=== PATIENT | female | born 1945 | race Caucasian/White ===

== ENCOUNTER 2024-12-18 20:54 | Inpatient (IN) | payer OTHER, SELFPAY ==
[2024-12-18] VITALS (7 sets, daily range): BP systolic 137–167; BP diastolic 66–90; BMI 26.4; BMI 26.2
[2024-12-18 14:56] LABS: % Basophils 0.4 % (0-2); % Immature Granulocytes 0.5 % (0-0.5); % Lymphocytes 23.7 % (20.5-51.1); % Monocytes 11.2 % (1.7-9.3); % Neutrophils 62.2 % (42.2-75.2); Absolute Eosinophils 0.2 10^3/uL (0-0.7); Absolute Lymphocytes 1.9 10^3/uL (1.2-3.4); Absolute Monocytes 0.9 10^3/uL (0.1-0.6); Absolute Neutrophils 4.9 10^3/uL (1.4-6.5); Hematocrit 28.5 % (37.0-47.0); Hemoglobin 8.4 g/dL (12.0-16.0); Mean Corp Hgb Conc. 29.5 g/dL (33.0-37.0); Mean Corpuscular Hgb 23.1 pg (27.0-31.0); Mean Corpuscular Volume 78.5 fL (81.0-99.0); Mean Platelet Volume 9.1 fL (7.4-10.4); Nucleated Red Blood Cells % 0 %; Platelet Count 522 10^3/uL (130-400); Red Blood Cell Count 3.63 10^6/uL (4.20-5.40); Red Cell Dist. Width 18.6 % (11.5-14.5); White Blood Cell Count 7.9 10^3/uL (4.8-10.8)
[2024-12-18 15:10] LABS: ALT (SGPT) 20 U/L (0-35); AST (SGOT) 28 U/L (14-36); Albumin 4.5 g/dl (3.5-5.0); Alkaline Phosphatase 64 U/L (38-126); Blood Urea Nitrogen 19 mg/dl (7-17); Calcium 12.9 mg/dl (8.4-10.2); Carbon Dioxide 25 mmol/L (22-30); Chloride 102 mmol/L (98-107); Glucose 123 mg/dl (70-99); Potassium 4.4 mmol/L (3.5-5.1); Sodium 140 mmol/L (135-145); Total Bilirubin 0.5 mg/dl (0.2-1.3); Total Protein 7.7 g/dl (6.3-8.2)
--- NOTE | 2024-12-18 16:41 | ED.GENMED ---
History of Present Illness
<NADIA Paul - Last Filed: 12/18/24 20:09>
General
Chief Complaint: Abnormal Lab Value
Source: patient
Exam Limitations: none
Time Seen by Provider: 12/18/24 16:24
Nursing documentation reviewed up to this point in time: agreed with
History of Present Illness
History of Present Illness:
79 yr. old female presents to the ER for evaluation. Patient reports she was scheduled to see her corporate travel counselor tomorrow and had labs done prior to her appointment and was called stating that they were abnormal and to go to the emergency department.
She is unsure of which lab was abnormal. She does report over the past several months however she has felt very fatigued and short of breath worse with any exertion. She reports prior to several months ago she was able to even mop her floors and
was very active without feeling shortness of breath or fatigue. She denies any associated shortness of breath with her symptoms. She is on Eliquis for history of A-fib she denies any dark or black stools.
She reports she is very thirsty and has had a decreased appetite. Denies weight loss.
Review of Systems
<NADIA Paul - Last Filed: 12/18/24 20:09>
Review of Systems
Allergies reviewed?: Yes
Other source history: family
All Other Systems: ROS reviewed and negative except as documented in HPI and ROS
Constitutional: Reports fatigue
EENT: Reports no symptoms
Respiratory: Reports trouble breathing
Cardiac: Reports no symptoms
ABD/GI: Reports no symptoms
: Reports no symptoms
Musculoskeletal: Reports no symptoms
Skin: Reports no symptoms
Neurological: Reports no symptoms
Psychiatric: Reports no symptoms
Phy Exam
<NADIA Paul - Last Filed: 12/18/24 20:09>
General Physical Exam
General Presentation: no apparent distress
General age: appears stated age
General Skin: warm and dry
General Habitus: normal
General Mental: alert
General Hydration: appears well hydrated
Cardiovascular Exam
Cardiovascular Exam: regular rate/rhythm, no murmur and normal peripheral pulses
Pulmonary Exam
Pulmonary Exam: lungs clear
Gastrointestinal Exam
Gastrointestinal Exam: normal bowel sounds, non tender, soft and other (no stool in rectum during heme test )
Neurological Exam
Neurological Exam: alert and oriented x3
Course
<NADIA Paul - Last Filed: 12/18/24 20:09>
Orders/Labs/Results
Orders:
Orders
12/18/24 14:47
Complete Blood Count/With Diff Urgent
Comprehensive Metabolic Panel Urgent
Ferritin Urgent
Comment: ADD ON
Folate Urgent
Comment: ADD ON
Iron Urgent
Comment: ADD ON
NT-proBNP Urgent
Comment: ADD ON
TSH Reflex To Free T4 Urgent
Comment: ADD ON
Total Iron Binding Urgent
Comment: ADD ON
Vitamin B12 Urgent
Comment: ADD ON
12/18/24 16:40
Add On- LAB Urgent
Tests Added?: cardiac BNP
12/18/24 16:44
Add On- LAB Urgent
Tests Added?: tsh w/ reflexive T4
12/18/24 16:46
CT Chest PE Study Urgent
Comment:
Reason For Exam: SOB
12/18/24 18:41
0.9% Sodium Chloride 500 ml [Nss] 500 ml IV BOLUS
12/18/24 18:42
Electrocardiogram (*1) Stat
Reason for Study: Other
Other Reason for Exam: chest pain
EKG- Treatment ONCE
12/18/24 18:45
Add On- LAB Urgent
Tests Added?: Parathyroid hormone (PTH)
12/18/24 20:07
Add On- LAB Stat
Tests Added?: iron, b12, ferritin, foalte, TIBC
12/18/24 20:35
Admit/Transfer Patient As Directed
Co-Sign Provider:
Level of Care: Inpatient admission
Assign to:: Telemetry
Physician / Group: benito zimmer
Diagnosis: dehdyration
Reason for Telemetry: Arrhythmia
Date to Stop Telemetry: 12/21/24
Time to Stop Telemetry: 11:00
Reason for Hospitalization: dehdyration
Expected length of stay greater than two midnights?: Yes
ELOS- Estimated Length of Stay in days: 3
I certify the patient meets the requirements for IP care: Yes
PRN Pain Medication Management As Directed
May give lesser potent ordered pain med per pt: Yes
preference::
Protocol:: Medication orders for pain may be administered in a
manner that supports deferring to patient preference
when the pt is:
- Requesting an ordered lesser potent pain medication.
Least to most potent pain medications are defined
as: acetaminophen < NSAID < tramadol < opioids
(morphine, oxycodone, hydromorphone).
- Requesting a lesser dose of the same medication IF
ORDERED.
- Requesting a less intrusive route of administration
if both routes are prescribed by the provider (PO <
IV).
12/18/24 20:38
Code Status As Directed
Resuscitation Status: Full Code
12/18/24 20:48
CR Lumbar Spine 2 Or 3 Views Routine
Comment: include sacrum
Reason For Exam: pain
CR Thoracic Spine 3 Views Routine
Reason For Exam: pain
12/18/24 21:03
Urinalysis Reflex To Culture Routine
Date Specimen was Collected: 12/18/24
Time Specimen was Collected: 20:52
Urine Microscopic Reflex Cult Routine
Urine Culture Routine
NOLBERTO Source: U
Specimen Description:
Date Specimen was Collected: 12/18/24
Time Specimen was Collected: 20:52
12/19/24 06:00
EVIN w/Free Light Chains, Urine [S] IN AM
EVIN/Immunoglobulins/FLC [Monoclonal Protein Qnt,IMM,FLC] [S] IN AM
Intact PTH Includes Calcium IN AM
Protein Electrophoresis Reflex [S] IN AM
12/21/24 11:00
DC Protocol for Telemetry ONCE
Abnormal Lab Results
12/18/24
14:47
RBC 3.63 L 10^6/uL
(4.20-5.40)
Hgb 8.4 L g/dL
(12.0-16.0)
Hct 28.5 L %
(37.0-47.0)
MCV 78.5 L fL
(81.0-99.0)
MCH 23.1 L pg
(27.0-31.0)
MCHC 29.5 L g/dL
(33.0-37.0)
RDW 18.6 H %
(11.5-14.5)
Plt Count 522 H 10^3/uL
(130-400)
Absolute Monos (auto) 0.9 H 10^3/uL
(0.1-0.6)
Monocytes % 11.2 H %
(1.7-9.3)
BUN 19 H mg/dl
(7-17)
Creatinine 1.1 H mg/dL
(0.6-1.0)
Glucose 123 H mg/dl
(70-99)
Calcium 12.9 H mg/dl
(8.4-10.2)
Iron 36 L ug/dl
(37-170)
TIBC 500 H ug/dl
(265-497)
% Saturation 7 L %
(20-50)
Ferritin 7.0 L ng/ml
(11.1-264.0)
Folate > 20.0 H ng/ml
(2.76-20)
12/18/24 14:47
12/18/24 14:47
Vital Signs
Initial and Last Documented VS:
Initial Vital Signs
Temp Pulse Resp BP Pulse Ox
97.9 F 93 18 153/84 98
12/18/24 14:40 12/18/24 14:40 12/18/24 14:40 12/18/24 14:40 12/18/24 14:40
Last Documented Vital Signs
Temp Pulse Resp BP Pulse Ox
97.9 F 79 16 137/80 94
12/18/24 14:40 12/18/24 21:32 12/18/24 21:32 12/18/24 20:00 12/18/24 21:32
Data Recovery Planner consulted with Physician
Data Recovery Planner consulted with physician?: Yes
Name of Physician Consulted: rené
<Scott Augustin MD - Last Filed: 12/18/24 21:56>
Orders/Labs/Results
Orders:
Orders
12/18/24 14:47
Complete Blood Count/With Diff Urgent
Comprehensive Metabolic Panel Urgent
Ferritin Urgent
Comment: ADD ON
Folate Urgent
Comment: ADD ON
Iron Urgent
Comment: ADD ON
NT-proBNP Urgent
Comment: ADD ON
TSH Reflex To Free T4 Urgent
Comment: ADD ON
Total Iron Binding Urgent
Comment: ADD ON
Vitamin B12 Urgent
Comment: ADD ON
12/18/24 16:40
Add On- LAB Urgent
Tests Added?: cardiac BNP
12/18/24 16:44
Add On- LAB Urgent
Tests Added?: tsh w/ reflexive T4
12/18/24 16:46
CT Chest PE Study Urgent
Comment:
Reason For Exam: SOB
12/18/24 18:41
0.9% Sodium Chloride 500 ml [Nss] 500 ml IV BOLUS
12/18/24 18:42
Electrocardiogram (*1) Stat
Reason for Study: Other
Other Reason for Exam: chest pain
EKG- Treatment ONCE
12/18/24 18:45
Add On- LAB Urgent
Tests Added?: Parathyroid hormone (PTH)
12/18/24 20:07
Add On- LAB Stat
Tests Added?: iron, b12, ferritin, foalte, TIBC
12/18/24 20:35
Admit/Transfer Patient As Directed
Co-Sign Provider:
Level of Care: Inpatient admission
Assign to:: Telemetry
Physician / Group: benito zimmer
Diagnosis: dehdyration
Reason for Telemetry: Arrhythmia
Date to Stop Telemetry: 12/21/24
Time to Stop Telemetry: 11:00
Reason for Hospitalization: dehdyration
Expected length of stay greater than two midnights?: Yes
ELOS- Estimated Length of Stay in days: 3
I certify the patient meets the requirements for IP care: Yes
PRN Pain Medication Management As Directed
May give lesser potent ordered pain med per pt: Yes
preference::
Protocol:: Medication orders for pain may be administered in a
manner that supports deferring to patient preference
when the pt is:
- Requesting an ordered lesser potent pain medication.
Least to most potent pain medications are defined
as: acetaminophen < NSAID < tramadol < opioids
(morphine, oxycodone, hydromorphone).
- Requesting a lesser dose of the same medication IF
ORDERED.
- Requesting a less intrusive route of administration
if both routes are prescribed by the provider (PO <
IV).
12/18/24 20:38
Code Status As Directed
Resuscitation Status: Full Code
12/18/24 20:48
CR Lumbar Spine 2 Or 3 Views Routine
Comment: include sacrum
Reason For Exam: pain
CR Thoracic Spine 3 Views Routine
Reason For Exam: pain
12/18/24 21:03
Urinalysis Reflex To Culture Routine
Date Specimen was Collected: 12/18/24
Time Specimen was Collected: 20:52
Urine Microscopic Reflex Cult Routine
Urine Culture Routine
NOLBERTO Source: U
Specimen Description:
Date Specimen was Collected: 12/18/24
Time Specimen was Collected: 20:52
12/19/24 06:00
EVIN w/Free Light Chains, Urine [S] IN AM
EVIN/Immunoglobulins/FLC [Monoclonal Protein Qnt,IMM,FLC] [S] IN AM
Intact PTH Includes Calcium IN AM
Protein Electrophoresis Reflex [S] IN AM
12/21/24 11:00
DC Protocol for Telemetry ONCE
Abnormal Lab Results
12/18/24
14:47
RBC 3.63 L 10^6/uL
(4.20-5.40)
Hgb 8.4 L g/dL
(12.0-16.0)
Hct 28.5 L %
(37.0-47.0)
MCV 78.5 L fL
(81.0-99.0)
MCH 23.1 L pg
(27.0-31.0)
MCHC 29.5 L g/dL
(33.0-37.0)
RDW 18.6 H %
(11.5-14.5)
Plt Count 522 H 10^3/uL
(130-400)
Absolute Monos (auto) 0.9 H 10^3/uL
(0.1-0.6)
Monocytes % 11.2 H %
(1.7-9.3)
BUN 19 H mg/dl
(7-17)
Creatinine 1.1 H mg/dL
(0.6-1.0)
Glucose 123 H mg/dl
(70-99)
Calcium 12.9 H mg/dl
(8.4-10.2)
Iron 36 L ug/dl
(37-170)
TIBC 500 H ug/dl
(265-497)
% Saturation 7 L %
(20-50)
Ferritin 7.0 L ng/ml
(11.1-264.0)
Folate > 20.0 H ng/ml
(2.76-20)
12/18/24 14:47
12/18/24 14:47
Vital Signs
Initial and Last Documented VS:
Initial Vital Signs
Temp Pulse Resp BP Pulse Ox
97.9 F 93 18 153/84 98
12/18/24 14:40 12/18/24 14:40 12/18/24 14:40 12/18/24 14:40 12/18/24 14:40
Last Documented Vital Signs
Temp Pulse Resp BP Pulse Ox
97.9 F 79 16 137/80 94
12/18/24 14:40 12/18/24 21:32 12/18/24 21:32 12/18/24 20:00 12/18/24 21:32
<NADIA Paul - Last Filed: 12/18/24 20:09>
MDM/Problems Addressed
Differential Diagnosis Includes:
not limited to: anemia electrolyte abnormality, PE
MDM/Problems Addressed:
Patient is an 79-year-old female who was sent to the ER by her corporate travel counselor for abnormal lab results. Patient has had persistent fatigue and shortness of breath for the past several months. She was found to be anemic with a hemoglobin 8.4. She
denied any dark stools and on rectal exam there is no stool today test for Hemoccult. She was also found to have a high calcium of 12.9
CAT scan was done of the chest no PE.
Patient does have a history of A-fib she is anticoagulated however is in normal sinus rhythm here BNP is 465 no complaints of chest pain no other acute findings and EKG.
Pt was evaluated by ED physician and with worsening SOB/fatigue will recommend admission for symptomatic anemia; in addition will likely need workup for hypercalcemia
Chronic conditions affecting care:
A-fib on Eliquis
<NADIA Paul - Last Filed: 12/18/24 20:09>
*Radiology
Radiology exam reviewed: radiology read reviewed
*Pulse Oximetry
Patient hypoxic: no
*EKG
Interpreted by ED Provider?: Yes
Interpretation: abnormal
Heart Rate: 84
Rate: normal
Rhythm: sinus
Ischemia: non-specific ST changes
*Critical Care Note
Total Time (30-74mins, 75-104mins- exclusive of procedures): Not Applicable
ED Attending Note
<NADIA Paul - Last Filed: 12/18/24 20:09>
-
Portions of this chart may have been created with voice recognition software.� Occasional wrong word or��sound alike� substitutions may have occurred due to the inherent limitations of voice recognition software.
<Scott Augustin MD - Last Filed: 12/18/24 21:56>
ED Attending Note
Patient seen and examined by attending physician: Yes
I performed the substantive portion of visit, reviewed & personally made and approve the management plan that is documented in note by myself or SHIRLEY.: Yes
ED Attending Note:
I have seen and evaluated the patient with a [id number] encounter. I have spoken to the [FINANCE TEACHER] and involved in the medical history, the physical exam, medical decision making.
Evaluation and management service: agree unless noted differently below.
Results interpretation: agree unless noted differently below.
79-year-old female with history of iron deficiency anemia, A-fib, hypertension, hyperlipidemia presenting to the emergency department abnormal blood work. Patient states that she had routine blood work done for her corporate travel counselor and received a call
stating to come to the emergency department. Patient does state that she is extremely short of breath especially with any exertion. Also has been tired. Does have history of iron deficiency requiring iron transfusion in the past. No melena or
hematochezia. No chest pain. On arrival patient is resting comfortably. Her lungs are clear to auscultation. Her abdomen is soft nondistended nontender. Blood work obtained prior to my evaluation does show anemia, thrombocytosis, hypercalcemia
and slightly elevated creatinine. Patient is asymptomatic from her hypercalcemia. Could be multiple myeloma. After shared decision making patient would prefer to be admitted for serial hemoglobin and calcium monitoring which is appropriate.
Discharge Plan
Departure
Patient Disposition: Admit
Date of Disposition: 12/18/24
Time of Disposition: 20:07
Admit to: Telemetry
Admit to doctor: hospitalist
Presentation/result/management discussed w/ accepting MD/DO: Hospitalist
Patient with high blood pressure during this ER visit?: Yes
Condition: Fair
Covid-19: Not Applicable
Discharge Problem:
Anemia, PIÑA (dyspnea on exertion), Fatigue, Hypercalcemia
Interventions
Interventions:
*Risk Screen - Suicide Last Done: 12/18/24 14:40
*General Assessment Last Done: 12/18/24 14:40
*Neglect/Abuse Screening Last Done: 12/18/24 14:40
*ED- Fall Risk Assessment Last Done: 12/18/24 16:50
*ED COVID-19 Vaccine History Last Done: 12/18/24 14:40
[2024-12-18 17:36] LABS: NT-proBNP 465 pg/ml
[2024-12-18 17:58] LABS: TSH Reflex To Free T4 0.53 uIU/ml (0.47-4.68)
[2024-12-18] MEDS: NSS 500 IV (18:53)
--- NOTE | 2024-12-18 20:03 | HPS.HSE ---
Family Physician
-
Family Physician: * NONE
Chief Complaint
-
fatigue or sob
History of Present Illness
79 yr. old female with PMH for atrial fib, HTN, HLD, GERD,hiatal hernia, osteoarthritis, IBS presented with abnormal blood work as outpatient. patient stated fatigue and sob for few months now. sob progressively getting worse. sob worse with
exertion. patient was evaluated by cardiology and PCP with no acute intervention or findings. she had an routine blood work in preparation to see cardiology tomorrow and was noted to have abnormal blood work. patient stated she was just diagnosed
with UTI and she is on Bactrim. patient stated lower abdominal pain and urinary hesitancy.
upon arrival she was noted elevated calcium, annelise, low hgb. admitting for further management.
Medical History
Past Medical History
Past Medical History: Reports Other
Additional Past Medical History:
Hiatal hernia
atrial fib
HTN
HLD
GERD
IBS
Past Surgical History: Reports Other
Additional Past Surgical History:
endometrial ablation
appendectomy
tonsillectomy
cholecystectomy
Social History
Tobacco: Non-smoker
Alcohol: None
Drug: None
Personal: Single
Family History
Family History: Not pertinent
Allergies / Home Medications
Allergies reflects when Allergies were last updated in [facility].
Home Medications with original date entered in [facility]
Allergy/Medication List:
Allergies
Allergy/AdvReac Type Severity Reaction Status Date / Time
Cephalosporins Allergy Unverified 12/14/07 13:41
penicillin G Allergy Unverified 12/14/07 13:41
Penicillins Allergy Unverified 12/14/07 13:41
Home Medications
losartan 50 mg tablet 50 mg PO DAILY 12/18/24
Review of Systems
-
Constitutional: Reports No Symptoms
EENT: Reports No Symptoms
Respiratory: Reports Cough and Trouble Breathing
Cardiac: Reports No Symptoms
Abdomen/GI: Reports No Symptoms
: Reports No Symptoms
Musculoskeletal: Reports No Symptoms
Skin: Reports No Symptoms
Neurological: Reports No Symptoms
Endocrine: Reports No Symptoms
Hematologic/Lymphatic: Reports No Symptoms
Psych: Reports No Symptoms
Physical Exam
Vital Signs
Vital Signs
Temp Pulse Resp BP Pulse Ox
97.9 F 100 19 167/77 93
12/18/24 14:40 12/18/24 17:45 12/18/24 17:45 12/18/24 17:00 12/18/24 17:45
Physical Exam
General: Well Developed, Well Nourished and No Apparent Distress
HEENT: NormoCephalic, Moist mucous membranes and Atraumatic
Respiratory: Clear
Cardiac: S1/S2 and Regular Rhythm; No Murmur or Rub
GI: Soft, Non Tender, Non Distended and Normal Bowel Sounds; No Organomegaly
Rectal: Deferred by Provider
Musculoskeletal: No Clubbing, No Cyanosis and No Edema
Skin: No Rash
Neuro: AO x 3 and Nonfocal/grossly intact
Psych: Calm
Laboratory Results
-
12/18/24 14:47
12/18/24 14:47
Laboratory Results
Total Bilirubin 0.5 mg/dl (0.2-1.3) 12/18/24 14:47
AST 28 U/L (14-36) 12/18/24 14:47
ALT 20 U/L (0-35) 12/18/24 14:47
Alkaline Phosphatase 64 U/L (38-126) 12/18/24 14:47
Data Reviewed
-
CT Scan: Report Reviewed by me
Lab Data: Labs Reviewed by me
Impression/Plan
-
# Short of breath/fatigue likely secondary to anemia/thrombocytosis
- Hemoglobin 8.4, platelet 522
- Chest CT with no acute findings
-No stool on rectal exam
- Obtain iron panel
-obtain stool for occult blood
-obtain SPEP
# Hypercalcemia/acute kidney injury
- Creatinine 1.1, calcium 12.9
-obtain intact PTH, urine light chains
-EVIN
-fluids continued
#UTI
-obtain UA
-Bactrim held
#essential HTN
-hold hctz due to ANNELISE and hypercalcemia
-losartan continued
#GERD
-PPI
#osteoarthritis
-on tramadol as outpatient
#HLD
-statin, Repatha continued
#atrial fib
-EKG with NSR
-eliquis and metoprolol continued
#DVT prophylaxis
-eliquis
#CODE status
-full code
--- NOTE | 2024-12-18 20:39 | W.PN.UPDATE ---
Update Note
Progress Note Update
This note serves as an addendum to the H&P by college scouting coordinator SHIRLEY Iris LOPEZ
HPI
79F HX HTN, chr Eliquis , HX Prx AF on ARB seen at ER;
- she was scheduled to see her installation and repair technician tomorrow and had labs done prior to her appointment
- she was called stating that they were abnormal and to go to the emergency department.
- retrospectively , over the past several months felt very fatigued and short of breath worse with any exertion.
- Interval declined in effort tolerance over few months was very active without feeling shortness of breath or fatigue.
- Significant report loss appetite , polyuria and polydipsia
ROS
- denies any dark or black stools.
- Denies weight loss.
Reviewed VS: Afebrile , No tachycardic , Hypertensive, Tachypneic mid 20s
PE
Gen: NAD, not toxic , BMI 26
HEENT: anicteric
Neck: supple
Lungs: CTA
Cor: RRR S1 S2
Abdomen: benign exam
ER DENISE: no stool in rectum during heme test
TERRAZZO ROLLER: AAO3 NFND
MS: no edema
Psych: AAO3
Data: No prior data in [employer]
Hgb 8.4 low MCV 78
BUN 19 Cr 1.1 eGFR 50
Ca 12.9 Albumin 4.5 TP 7.7
TSH 0.53
Pro BNP 465
EKG
NORMAL SINUS RHYTHM
LEFT AXIS DEVIATION
POSSIBLE ANTERIOR INFARCT , AGE UNDETERMINED
ABNORMAL ECG
WHEN COMPARED WITH ECG OF 25-APR-1998 15:39,
VENT. RATE HAS INCREASED BY 29 BPM
QRS AXIS SHIFTED LEFT
BORDERLINE CRITERIA FOR ANTERIOR INFARCT ARE NOW PRESENT
NONSPECIFIC T WAVE ABNORMALITY NOW EVIDENT IN INFERIOR LEADS
T WAVE AMPLITUDE HAS DECREASED IN ANTEROLATERAL LEADS
CT Chest PE Study
- Respiratory motion degradation limits evaluation of the bibasilar subsegmental divisions.
- Otherwise, no evidence of pulmonary embolism.
- Pulmonary artery branching order level of the most proximal pulmonary embolism: N/A
- Mild [place] in [place] opacity in the posterolateral right upper lobe, with the largest nodular solid component measuring 5.3 mm.
Likely age indeterminant bronchiolitis. Consider follow-up in one year if the patient is at increased risk.
- No evidence of pneumonia.
- Hiatal hernia.
ASSESSMENT & PLAN
Anorexia, polyuria, polydipsia, fatigue, interval new effort intolerance
Microcytic anemia
Symptomatic hypercalcemia
Hi total proteins ? paraproteinemia
Renal insufficiency unknown chronicity ? myeloma
Diff etiology: concern for multiple myeloma induced bone demineralization, dehydration>> HCTZ induced hypercalcemia
- no stool in rectum to check HoB stool
- check all stools for HoB
- agree with Ferritin and Fe studies
- Urinalysis for proteinuria
- SPEP, EVIN ( serum and urine)
- check iPTH , TSH
- Received IV NS 500 cc at ER - IV NS 80 /H fro 1 more litre follow Ca in AM
- Obtain old records form PCP
- Oncology consult
Tachypnea
- NEG CT for PE
Subacute LBP; No radicular symptoms
- XR spine ( Thx, Lx and sacral ) to eval for lytic lesion
OP UTI
- currently on Bactrim
- check UA
In NSR
HX Prx AF
- c/w Eliquis
Essential HTN
Renal insufficiency unknown chronicity
- Hold HCTZ
- c/w Losartan
- trend cr
- Obtain PCP reocrds for labs
HLD
on IM Repatha twice a month
DVT Px: LMWH
Code: Full code
IP TLM due to hypercalcemia
[2024-12-18 20:46] LABS: Iron 36 ug/dl (37-170)
[2024-12-18 20:56] LABS: Percent Saturation 7 % (20-50); Total Iron Binding Capacity 500 ug/dl (265-497)
[2024-12-18 21:11] LABS: Urine Albumin 2+ (Neg - Trace); Urine Bilirubin Negative (Negative); Urine Character Cloudy (Clear); Urine Color Yellow; Urine Glucose Negative (Negative); Urine Ketone Negative (Negative); Urine Leukocyte 3+ (Negative); Urine Nitrite Negative (Negative); Urine Occult Blood 4+ (Negative); Urine Urobilinogen Negative (Neg - 1+)
[2024-12-18 21:25] LABS: Urine Red Blood Cell 16-20 /HPF (0-2)
[2024-12-18 21:26] LABS: Urine Bacteria Few (Negative); Urine White Cell 70-80 /HPF (0-5)
[2024-12-18 21:53] LABS: Folate > 20.0 ng/ml (2.76-20); Vitamin B12 747 pg/ml (239-931)
[2024-12-18] MEDS: LOPRESSOR 5 MG IV (23:11)
[2024-12-18] MEDS: NSS 1000 IV (23:20)
--- NOTE | 2024-12-18 23:20 | PTCARENOTE ---
Pt arrived to room 414-01. Pt AAOx3. Pt connected to tele, alerted to be Afib in 140s jumping up to 180s. Pt asymptomatic. Pt states she did not receive her HS meds yet at the time. BP 157/90. LABORER PETROLEUM REFINERY Sedrick Torres on floor made aware. EKG ordered, 5mg
IV Lopressor ordered STAT. Medication administered per order.
[2024-12-19] VITALS (8 sets, daily range): BP systolic 116–132; BP diastolic 58–74; BMI 26.2
--- NOTE | 2024-12-19 00:52 | W.PN.UPDATE ---
Addendum entered and electronically signed by Kyler Kenny MD 12/19/24 08:24:
XR Thx and Lx spine
Multilevel mild degenerative changes with slightly exaggerated thoracic kyphosis.
There is no evidence of acute compression fracture.
Multilevel moderate degenerative changes of the lumbar spine extending from L3-S1.
Original Note:
Update Note
Progress Note Update
RN reported patient HR in 140's-170's, irregular on the monitor. EKG done confirms Afib. Patient seen and evaluated, AAO, denies any chest pain, shortness of breath. States she has hx of Afib and is on Eliquis 5mg PO BID and Toprol XL 50mg PM and
has not taken her doses for night. VS;98, 150's/90's, HR 140's-160's, 16, 97%. Will order Metoprolol 5mg IVx1, BP 119/67 HR 80's NSR now, continue Eliquis 5mg and will give Toprol XL 25mg POx1
[2024-12-19] MEDS: TOPROL XL 25 MG PO (01:08)
[2024-12-19] MEDS: ELIQUIS 5 MG PO (01:09)
[2024-12-19] MEDS: MELATONIN 5 MG PO (01:09)
[2024-12-19 07:27] LABS: Hematocrit 24.1 % (37.0-47.0); Hemoglobin 7.1 g/dL (12.0-16.0); Mean Corp Hgb Conc. 29.5 g/dL (33.0-37.0); Mean Corpuscular Hgb 22.9 pg (27.0-31.0); Mean Corpuscular Volume 77.7 fL (81.0-99.0); Mean Platelet Volume 8.8 fL (7.4-10.4); Platelet Count 443 10^3/uL (130-400); Red Cell Dist. Width 18.6 % (11.5-14.5); White Blood Cell Count 6.2 10^3/uL (4.8-10.8)
[2024-12-19 07:31] LABS: Blood Urea Nitrogen 15 mg/dl (7-17); Calcium 10.7 mg/dl (8.4-10.2); Carbon Dioxide 24 mmol/L (22-30); Chloride 107 mmol/L (98-107); Estimated Creatinine Clearance 45 ml/min; Glucose 112 mg/dl (70-99); Potassium 3.9 mmol/L (3.5-5.1); Sodium 141 mmol/L (135-145); eGFR > 60.00
--- NOTE | 2024-12-19 08:12 | CON.ONC ---
Consultation
-
Date Consultation Requested: 12/18/24
Date Consultation Performed: 12/19/24
Performing Provider: Dr. Slaughter/Dr. Varela
Impression
Impression
Iron deficiency anemia
Mild-moderate asymptomatic hypercalcemia, unclear etiology
ANNELISE, unknown baseline
known incidental pulmonary nodule-- per review of records; prior imaging/radiology reports not available for review
back pain-- multilevel moderate degenerative changes and anterior osteophytes
Plan
Plan
IV Iron and trend CBC while inpatient. No signs of acute/ongoing bleeding-- heme test stool pending. Could consider nonurgent/outpatient GI evaluation for possible occult GI bleed contributing to iron deficiency as well as follow up for GI
complaints (GERD, hiatal hernia, early satiety). Plan for oral iron supplementation and outpatient heme/onc follow up at discharge-- can arrange for additional doses of IV iron outpatient if appropriate.
For hypercalcemia (normal albumin), multiple myeloma labs and PTH pending; TSH wnl. We do not have access to prior Ca results from [facility]. No recent changes to antihypertensives, agree with holding hctz (of note outpatient note from [facility] says dose is
25mg daily for at least past year, though she has h/o taking extra doses of other medications like metoprolol). Would hold vitamin D supplementation for now. As she is asymptomatic with only mild to moderate elevation, continue trending BMP and
conservative management per primary team. Follow up with heme/onc outpatient as above, and will review MM lab results at that time if they are still pending at time of hospital discharge.
Other medical problems, management per primary team. Follow up with PCP/[facility] for monitoring known incidental lung nodule.
Patient History
History of Present Illness
79yo F with PMH afib, htn, OA, osteopenia, Fe def anemia who was sent to ED for abnormal outpatient lab work obtained routinely prior to cardiology follow up appointment. CBC 12/17/24 showed hgb 8.5, mcv 78, wbc 7.8, plt 567 (in comparison hgb was
13.3 03/2024). She has a history of iron deficiency anemia requiring IV and PO Fe supplementation, both of which were stopped several years ago without recurrent issues. She reports 6 months ago, developed shortness of breath and lightheadedness--
gradual onset and worsening. In September symptoms got bad enough that she saw her PCP for lightheadedness/fatigue-- thought to be due to taking extra metoprolol and daily alcohol use. In the past few weeks, developed low back pain and exercise
intolerance (previously fairly active with gardening, now struggles with manager ob). She reports poor appetite and early satiety; denies abdominal pain, nausea, vomiting, difficulty/pain swallowing, diarrhea, constipation, black/bloody
stools. She stays well hydrated with ice and water. More recently developed symptomatic UTI being treated with bactrim and new cough.
On evaluation today, she reports no change in symptoms. Continues to have shortness of breath, fatigue, urinary symptoms (urgency, pelvic pressure), low back pain and neck pain, arthritic pain.
Past-Medical/Surgical History
PAF, labile HTN, HLD, hiatal hernia, GERD, IBS constipation, colonic polyps, skin cancer- squamous and melanoma s/p excision, h/o smoking (quit 2003), incidental lung nodule <8mm, Iron deficiency anemia, osteoarthritis, osteopenia, h/o daily alcohol
use per review of notes (denied to me)
cholecystectomy 1969, D&C 1975/1997, endometrial ablation 1997, appendectomy, tonsillectomy; EGD/colonoscopy 2020
onco family history: father prostate cancer, pagets; mother skin cancer; daughter leiomyosarcoma (d. 11 y ago)
Patient Medication
�Medication �Instructions �Recorded �Confirmed �Last Taken �Type
acetaminophen 500 mg tablet 1,000 mg PO BIDPRN PRN mild pain 12/18/24 12/18/24 Unknown History
(Tylenol Extra Strength)
apixaban 5 mg tablet (Eliquis) 5 mg PO BID Blood Clot 12/18/24 12/18/24 12/18/24 History
Prevention/Tx
atorvastatin 10 mg tablet (Lipitor) 5 mg PO MOWEFR High Cholesterol 12/18/24 12/18/24 12/17/24 History
carboxymethylcellulose 0.5 1 drp BOTH EYES BID Eye Condition 12/18/24 12/18/24 12/18/24 History
%-glycerin 0.9 % eye drops
(Refresh Optive)
cholecalciferol (vitamin D3) 25 25 mcg PO DAILY Supplement 12/18/24 12/18/24 12/18/24 History
mcg (1,000 unit) tablet (Vitamin
D3)
cranberry fruit 450 mg tablet 450 mg PO BID Supplement 12/18/24 12/18/24 12/18/24 History
(cranberry)
dicyclomine 10 mg capsule 10 mg PO TIDPRN PRN spasms 12/18/24 12/18/24 Unknown History
evolocumab 140 mg/mL subcutaneous 140 mg SC Q2W High Cholesterol 12/18/24 12/18/24 Unknown History
pen injector (Repatha Dashawnick)
hydrochlorothiazide 50 mg tablet 50 mg PO DAILY Fluid 12/18/24 12/18/24 12/18/24 History
Retention/Swelling
losartan 50 mg tablet 50 mg PO QPM Blood Pressure 12/18/24 12/18/24 12/17/24 History
metoprolol succinate 50 mg 50 mg PO QPM Blood Pressure 12/18/24 12/18/24 12/17/24 History
tablet,extended release 24 hr
(Toprol XL)
omeprazole 20 mg tablet,delayed 20 mg PO DAILYPRN PRN gerd 12/18/24 12/18/24 Unknown History
release
sulfamethoxazole 800 1 tab PO BID Infection 12/18/24 12/18/24 12/17/24 History
mg-trimethoprim 160 mg tablet
(Bactrim DS)
tramadol 50 mg tablet 50 mg PO TIDPRN PRN moderate pain 12/18/24 12/18/24 Unknown History
Active Medications
Generic Name Dose Route Start Last Admin
Trade Name Freq PRN Reason Stop Dose Admin
Acetaminophen 650 mg 12/18/24 22:39
Acetaminophen 325 Mg Tablet PO 01/15/25 22:38
Q4HPRN PRN
mild pain/GARCIA/temp> 100.4F
Apixaban 5 mg 12/19/24 08:00
Apixaban (Eliquis) 5 Mg Tablet PO 01/16/25 07:59
BID TABATHA
Atorvastatin Calcium 5 mg 12/19/24 08:00
Atorvastatin (Lipitor) 10 Mg Tablet PO 01/16/25 07:59
MoWeFr@0800 TABATHA
Bisacodyl 10 mg 12/18/24 22:39
Bisacodyl 10 Mg Rectal Suppository RECTAL 01/15/25 22:38
[id number] PRN
constipation
Carboxymethylcellulose Sodium 1 drops 12/19/24 08:00
Carboxymethylcellulose Ophth Gel (Celluvisc) Droperette BOTH EYES 01/16/25 07:59
BID TABATHA
Cholecalciferol 25 mcg 12/19/24 08:00
Cholecalciferol (Vitamin D3) 25 Mcg Tablet (1,000 Units) PO 01/16/25 07:59
DAILY TABATHA
Dicyclomine HCl 10 mg 12/18/24 22:39
Dicyclomine 10 Mg Capsule PO 01/15/25 22:38
TIDPRN PRN
spasms
Sodium Chloride 1,000 mls @ 80 mls/hr 12/18/24 22:39 12/18/24 23:20
Nss IV 1,000 mls
.[id number] TABATHA Administration
Losartan Potassium 50 mg 12/19/24 18:00
Losartan 50 Mg Tablet PO 01/16/25 17:59
QPM TABATHA
Metoprolol Succinate 50 mg 12/19/24 18:00
Metoprolol 50 Mg Extended Release Tablet PO 01/16/25 17:59
QPM TABATHA
Pantoprazole Sodium 40 mg 12/18/24 22:42
Pantoprazole 40 Mg Delayed Release Tablet PO 01/15/25 22:41
DAILYPRN PRN
gerd
Polyethylene Glycol 17 grams 12/18/24 22:39
Polyethylene Glycol Powder 17 Grams Packet PO 01/15/25 22:38
DAILYPRN PRN
constipation
Senna/Docusate Sodium 1 tablet 12/18/24 22:39
Docusate W/Senna (Veronica-Colace) Tablet PO 01/15/25 22:38
BIDPRN PRN
constipation
Sodium Chloride 0 flush 12/18/24 22:00
Sodium Chloride 0.9% (Flush) Syringe IV 01/15/25 21:59
PER PROTOCOL TABATHA
Review of Systems
-
History Source: Patient
Constitutional: Reports No Appetite and Fatigue; Denies Fever, Weight Loss, Sleep Disturbance, Night Sweats or Chills
EENT: Reports No Symptoms
Respiratory: Reports Cough and Trouble Breathing; Denies Hemoptysis or Wheezing
Cardiac: Reports Palpitations (occasional; denies currently); Denies Chest Pain, Diaphoresis, Syncope or Orthopnea
GI: Reports Anorexia and GERD; Denies Abdominal Pain, Nausea, Vomiting, Diarrhea, Constipated, Bloody Stools, Black Stools or Hemetemesis
: Reports Frequency, Urgency, UTI and Other (pelvic pressure/discomfort); Denies Dysuria, Difficulty Voiding, Bleeding or Dark Urine
Musculoskeletal: Reports Joint Pain and Other (neck pain, low back pain); Denies Edema
Skin: Reports No Symptoms
Neuro: Reports Lightheadedness; Denies Dizzy, Headache or Numbness
Hematologic/Lymphatic: Denies Bleeding, Swollen Glands, Bruising or Blood Clots
Allergy / Immunology: Reports No Symptoms
Psych: Reports No Symptoms
Physical Exam
-
General: Well Developed, Well Nourished, No Apparent Distress, Comfortable and Conversant; Negative Pain, Fever, Chills or Sweats
HEENT: Moist Mucous Membranes; Negative Jaundice
Pulmonary: Other (nonlabored breathing)
GI: Other (abdomen soft, nontender, nondistended; no rebound/rigidity/guarding)
Musculoskeletal: No Edema and Other (neck supple, full ROM; midline spine mild TTP lumbar and lower cervical; mild paraspinal TTP)
Neurology: Non Focal, No Lateralizing Symptoms and No Word Finding Difficulty
Skin: Warm and Dry
Psych: Calm and Intact Judgement/Insight
Labs
Lab Results
WBC 6.2 10^3/uL (4.8-10.8) 12/19/24 06:40
RBC 3.10 10^6/uL (4.20-5.40) L 12/19/24 06:40
Hgb 7.1 g/dL (12.0-16.0) L 12/19/24 06:40
Hct 24.1 % (37.0-47.0) L 12/19/24 06:40
MCV 77.7 fL (81.0-99.0) L 12/19/24 06:40
MCH 22.9 pg (27.0-31.0) L 12/19/24 06:40
MCHC 29.5 g/dL (33.0-37.0) L 12/19/24 06:40
RDW 18.6 % (11.5-14.5) H 12/19/24 06:40
Plt Count 443 10^3/uL (130-400) H 12/19/24 06:40
MPV 8.8 fL (7.4-10.4) 12/19/24 06:40
Abs Immat Gran (auto) 0.0 10^3/uL (0-0.05) 12/18/24 14:47
Absolute Neuts (auto) 4.9 10^3/uL (1.4-6.5) 12/18/24 14:47
Absolute Lymphs (auto) 1.9 10^3/uL (1.2-3.4) 12/18/24 14:47
Absolute Monos (auto) 0.9 10^3/uL (0.1-0.6) H 12/18/24 14:47
Absolute Eos (auto) 0.2 10^3/uL (0-0.7) 12/18/24 14:47
Absolute Basos (auto) 0.0 10^3/uL (0-0.2) 12/18/24 14:47
Immature Gran % 0.5 % (0-0.5) 12/18/24 14:47
Neutrophils % 62.2 % (42.2-75.2) 12/18/24 14:47
Lymphocytes % 23.7 % (20.5-51.1) 12/18/24 14:47
Monocytes % 11.2 % (1.7-9.3) H 12/18/24 14:47
Eosinophils % 2.0 % (0-6) 12/18/24 14:47
Basophils % 0.4 % (0-2) 12/18/24 14:47
Creatinine 0.9 mg/dL (0.6-1.0) 12/19/24 06:40
Vital Signs
Vital Signs
Temp Pulse Resp BP Pulse Ox
98.0 F 75 20 116/68 97
12/19/24 03:42 12/19/24 03:42 12/19/24 03:42 12/19/24 03:42 12/19/24 03:42
--- NOTE | 2024-12-19 08:20 | W.PN.UPDATE ---
Update Note
Progress Note Update
I saw and evaluated the patient. I reviewed the resident�s note and agree with findings and plan as documented in the resident�s note.
No new complaints.
Gen: NAD, AAOx3.
Eyes: EOMI, PERRLA, no scleral icterus.
Neck: supple.
CV: RRR, +S1/S2, no m/r/g.
Resp: CTAB, no rales, wheezes, or rhonchi.
Abd: +BS, soft, NT, ND
Skin: No rashes.
Neuro: CN 2-12 intact, non-focal.
Psych: Normal mood and affect.
CTA chest:
- Respiratory motion degradation limits evaluation of the bibasilar subsegmental divisions.
- Otherwise, no evidence of pulmonary embolism.
- Pulmonary artery branching order level of the most proximal pulmonary embolism: N/A
- Mild Tree in [place] opacity in the posterolateral right upper lobe, with the largest nodular solid component measuring 5.3 mm.
Likely age indeterminant bronchiolitis. Consider follow-up in one year if the patient is at increased risk.
- No evidence of pneumonia.
- Hiatal hernia.
L-spine Xray: No evidence of acute compression fracture.
T-spine Xray: Multilevel mild degenerative changes with slightly exaggerated thoracic kyphosis.
Anorexia, polyuria, polydipsia, fatigue, tachypnea, interval new effort intolerance:
-with microcytic anemia and symptomatic hypercalcemia
-HCTZ stopped
-follow SPEP/UPEP/PTH
-Fe studies noted, start IV Fe
-transfuse 1U pRBCs
-increase IVFs to 125cc/hr
-ANNELISE has been ruled out
-Hemetest stool
-Heme following, case discussed with Dr. Varela
Other problems:
UTI, POA: cont Bactrim to completion
PAF: hold Eliquis with Hb 7.1. cont BB.
Essential HTN: cont BB/ARB
HLD: on Repatha
FULL/SCDs
--- NOTE | 2024-12-19 09:46 | W.PN.HOSP.TC ---
Today's Communication/Plan
-
- trend hgb
- Follow up Heme
Assessment / Plan
Assessment / Plan
Iron deficiency anemia with shortness of breath/fatigue:
-hgb is 7.1, mcv is 77
-Iron is low, TIBC is elevated, and ferritin is low indicating iron deficiency anemia
-Started on IV ferric gluconate
-Hematest stool pending
-Consult heme
Hypercalcemia due to unspecified cause:
- On admission calcium level is 12.9 and today its 10.7
- HCTZ stopped
- PTH, SPEP, UPEP are pending
- continued IV fluids
UTI:
- Patient is afebrile,
- Urinalysis shows 70-80 wbc, 3+ leucocyte esterase, few bacteria
- ordered Bactrim 1 tablet bid
Paroxysmal atrial fibrillation:
- EKG shows atrial fibrillation today morning with HR in the 140-170's
- Her HR right now is 72 and well controlled, keep less than 110
- continue BB
- Eliquis is on hold due to low hgb
Essential HTN:
- BP is 125/65 and well controlled
- continue on BB/ARB
Hyperlipidemia:
- On IM repatha twice a month
- Continue Repatha
Full code
Anticipated Discharge: 24 - 48 hours
Subjective/Interval History
-
Date of Service: December 19, 2024
She is complaining of shortness of breath and fatigue since her admission yesterday.
Objective Data
-
Labs:
Laboratory Results
12/19/24
06:40
WBC 6.2
Hgb 7.1 L
Hct 24.1 L
Plt Count 443 H
Sodium 141
Potassium 3.9
Chloride 107
Carbon Dioxide 24
BUN 15
Creatinine 0.9
Glucose 112 H
Calcium 10.7 H D
Vital Signs:
Vital Signs
Temp Pulse Resp BP Pulse Ox
98.1 F 72 18 125/65 95
12/19/24 07:12 12/19/24 07:12 12/19/24 07:12 12/19/24 07:12 12/19/24 07:12
Review of Systems
-
History Source: Patient
All other systems: Reviewed and negative
Respiratory: Reports Trouble Breathing
Physical Exam
-
General: Well Developed and Well Nourished
Respiratory: Clear to Auscultation; Negative Wheezes, Rales, Rhonchi or Crackles
Cardiac: Regular Rhythm and S1/S2
GI: Soft, Nontender, Nondistended and Normal Bowel Sounds
Musculoskeletal: No Clubbing, No Cyanosis and No Edema
Skin: Warm and Dry
Neuro: Awake, Alert, Oriented and AO x 3
Psych: Calm
Data Reviewed
-
Labs: Labs Reviewed by me and Discussed with Physician
[2024-12-19] MEDS: LIPITOR 5 MG PO (09:51)
[2024-12-19] MEDS: VITAMIN D3 (cholecalciferol) 25 MCG PO (09:51)
[2024-12-19] MEDS: NSS 1000 IV (10:00)
[2024-12-19] MEDS: REFRESH CELLUVISC GEL 1 DROPS BOTH EYES ×2 (10:00→19:54)
--- NOTE | 2024-12-19 10:49 | CM ---
Patient seen bedside, initial assessment completed. Patient is a 79 yr. old female with PMH for atrial fib, HTN, HLD, GERD,hiatal hernia, osteoarthritis, IBS presented with abnormal blood work as outpatient. patient stated fatigue and sob for few
months now.
Patient resides in a split level home- 3 steps to enter. Patient shared her son lives w/ her as well. Independent w/ ambulating, no device required. Independent w/ ADLs. Patient has grab bar and shower chair in bathroom. Denies SNF/HC hx.
Address, point of contact and insurance verified.
PCP: Caryn Schultz NP
Pharmacy: [facility]
Plan: Anticipate home, no needs
[2024-12-19 12:32] LABS: Intact PTH < 3.4 pg/ml (13.6-85.8)
[2024-12-19 12:38] LABS: Intact PTH 3.4 pg/ml (13.6-85.8)
[2024-12-19] MEDS: BACTRIM DS 800 MG/160 MG 1 TABLET PO ×2 (14:07→19:54)
[2024-12-19] MEDS: TYLENOL 650 MG PO (17:38)
[2024-12-19] MEDS: FERRLECIT 110 MG IV (17:39)
[2024-12-19] MEDS: COZAAR 50 MG PO (17:45)
[2024-12-19] MEDS: TOPROL XL 50 MG PO (17:45)
[2024-12-20] MEDS: TYLENOL 650 MG PO ×2 (00:21→08:27)
[2024-12-20] MEDS: MELATONIN 5 MG PO (00:22)
[2024-12-20] MEDS: NSS 1000 IV (00:25)
[2024-12-20 00:36] LABS: Hemoglobin 8.4 g/dL (12.0-16.0)
[2024-12-20 03:10] VITALS: BP 117/74
[2024-12-20 07:23] VITALS: BP 134/68
[2024-12-20 08:03] LABS: Hematocrit 26.8 % (37.0-47.0); Hemoglobin 7.8 g/dL (12.0-16.0); Mean Corp Hgb Conc. 29.1 g/dL (33.0-37.0); Mean Corpuscular Hgb 23.4 pg (27.0-31.0); Mean Corpuscular Volume 80.2 fL (81.0-99.0); Mean Platelet Volume 9.2 fL (7.4-10.4); Platelet Count 402 10^3/uL (130-400); Red Blood Cell Count 3.34 10^6/uL (4.20-5.40); Red Cell Dist. Width 18.6 % (11.5-14.5); White Blood Cell Count 5.8 10^3/uL (4.8-10.8)
[2024-12-20] MEDS: NSS IV (08:24)
[2024-12-20] MEDS: VITAMIN D3 (cholecalciferol) 25 MCG PO (08:24)
[2024-12-20] MEDS: REFRESH CELLUVISC GEL 1 DROPS BOTH EYES (08:24)
[2024-12-20 08:33] LABS: Blood Urea Nitrogen 13 mg/dl (7-17); Calcium 9.9 mg/dl (8.4-10.2); Carbon Dioxide 21 mmol/L (22-30); Chloride 111 mmol/L (98-107); Estimated Creatinine Clearance 45 ml/min; Glucose 88 mg/dl (70-99); Sodium 144 mmol/L (135-145); eGFR > 60.00
--- NOTE | 2024-12-20 08:49 | W.PN.UPDATE ---
Update Note
Progress Note Update
I saw and evaluated the patient. I reviewed the resident�s note and agree with findings and plan as documented in the resident�s note.
Denies chest pain, shortness of breath, abdominal pain. Denies melena or hematochezia.
Gen: NAD, AAOx3.
Eyes: EOMI, PERRLA, no scleral icterus.
Neck: supple.
CV: remains RRR, +S1/S2, no m/r/g.
Resp: remains CTAB, no rales, wheezes, or rhonchi.
Abd: remains +BS, soft, NT, ND
Skin: No rashes.
Neuro: CN 2-12 intact, non-focal.
Psych: Normal mood and affect.
CTA chest:
- Respiratory motion degradation limits evaluation of the bibasilar subsegmental divisions.
- Otherwise, no evidence of pulmonary embolism.
- Pulmonary artery branching order level of the most proximal pulmonary embolism: N/A
- Mild Tree in [place] opacity in the posterolateral right upper lobe, with the largest nodular solid component measuring 5.3 mm.
Likely age indeterminant bronchiolitis. Consider follow-up in one year if the patient is at increased risk.
- No evidence of pneumonia.
- Hiatal hernia.
L-spine Xray: No evidence of acute compression fracture.
T-spine Xray: Multilevel mild degenerative changes with slightly exaggerated thoracic kyphosis.
Anorexia, polyuria, polydipsia, fatigue, tachypnea, interval new effort intolerance:
-with microcytic anemia and symptomatic hypercalcemia
-HCTZ stopped
-iPTH low
-follow SPEP/UPEP
-Fe studies noted, cont IV Fe (PO Fe on d/c)
-s/p 1U pRBCs
-stop IVFs
-ANNELISE has been ruled out
-Hemetest stool
-Heme saw in c/s
Other problems:
UTI, POA: completed a course of Bactrim
PAF: resume Eliquis. cont BB.
Essential HTN: cont BB/ARB
HLD: on Repatha
FULL/SCDs
Medically cleared for d/c.
Total time spent on d/c = 31 min. This included today's physical exam, progress note, review of laboratory and diagnostic data, preparation of discharge documents and prescriptions, and discussions about the pt's hospital course and discharge plan
with the patient and other nuclear medical technologist involved in the patient's care.
--- NOTE | 2024-12-20 08:59 | W.PN.HOSP.TC ---
Today's Communication/Plan
-
- f/u with heme and trend hgb
Assessment / Plan
Assessment / Plan
Iron deficiency anemia with shortness of breath/fatigue:
-hgb is 7.8, mcv is 77
-Iron is low, TIBC is elevated, and ferritin is low indicating iron deficiency anemia
-continue IV ferric gluconate
-Hematest stool pending
-heme if following, ordered multiple myeloma workup which is pending
- Continue IV fluids
- Continue to trend hgb and transfuse if less than 7
PTH independent hypercalcemia
Low parathyroid hormone:
- On admission calcium level is 12.9 and today its 9.9 and normalized
- HCTZ stopped
- PTH decreased at 3.4 , SPEP, UPEP are pending
Previous diagnosis of UTI:
- Patient is afebrile, WBC count is normal, no burning micturition, no frequency, no suprapubic tenderness
- Urinalysis shows 70-80 wbc, 3+ leucocyte esterase, few bacteria
Paroxysmal atrial fibrillation:
- EKG shows atrial fibrillation with HR in the 140-170's yesterday
- Her HR right now is 66 and well controlled, keep less than 110
- continue BB
- Eliquis is on hold due to low hgb
Essential HTN:
- BP is 134/68 and well controlled
- continue on BB
- Continue on losartan
Hyperlipidemia:
- On IM repatha twice a month
- Continue Repatha
Full code
Anticipated Discharge: Within 24 hours
Subjective/Interval History
-
Date of Service: December 20, 2024
She is complaining of lightheadedness since today morning.
Objective Data
-
Labs:
Laboratory Results
12/20/24 12/20/24
00:09 06:24
WBC 5.8
Hgb 8.4 L 7.8 L
Hct 28.0 L 26.8 L
Plt Count 402 H
Sodium 144
Potassium 4.0
Chloride 111 H
Carbon Dioxide 21 L
BUN 13
Creatinine 0.9
Glucose 88
Calcium 9.9
Vital Signs:
Vital Signs
Temp Pulse Resp BP Pulse Ox
97.9 F 66 18 134/68 96
12/20/24 07:23 12/20/24 07:23 12/20/24 07:23 12/20/24 07:23 12/20/24 07:23
I&O
12/19/24 12/20/24 12/21/24
06:59 06:59 06:59
Intake Total 2114
Balance 2114
Review of Systems
-
History Source: Patient
All other systems: Reviewed and negative
Neuro: Reports Lightheadedness
Physical Exam
-
General: Well Developed and Well Nourished
Respiratory: Clear to Auscultation; Negative Wheezes, Rales, Rhonchi or Crackles
Cardiac: Regular Rhythm and S1/S2
GI: Soft, Nontender, Nondistended and Normal Bowel Sounds
Musculoskeletal: No Clubbing, No Cyanosis and No Edema
Skin: Warm and Dry
Neuro: Awake, Alert, Oriented and AO x 3
Psych: Calm
Data Reviewed
-
Labs: Labs Reviewed by me and Discussed with Physician
[2024-12-20 10:28] VITALS: BP 130/60
--- NOTE | 2024-12-20 11:06 | W.PN.ONC ---
Today's Communication / Plan
-
Continue iron supplementation, follow up heme/onc outpatient
Impression
Impression
Iron deficiency anemia-- s/p IV Fe x1, s/p 1u pRBC
Mild-moderate asymptomatic hypercalcemia, resolved
known incidental pulmonary nodule-- per review of records; prior imaging/radiology reports not available for review
back pain-- multilevel moderate degenerative changes and anterior osteophytes
Plan
Plan
Fe def anemia: No signs of acute/ongoing bleeding. Plan for oral iron supplementation and outpatient heme/onc follow up at discharge for repeat iron studies-- can arrange for additional doses of IV iron outpatient if appropriate. Could consider
nonurgent/outpatient GI evaluation for possible occult GI bleed contributing to iron deficiency as well as follow up for GI complaints (GERD, hiatal hernia, early satiety).
Hypercalcemia: Resolved with conservative management. PTH low, rules out hyperparathyroidism. TSH wnl. Previously ordered multiple myeloma labs pending-- will follow up/review at follow up appointment. Defer hctz and vitamin D to primary team.
Other medical problems, management per primary team. Follow up with PCP/[facility] for monitoring known incidental lung nodule.
Stable for discharge from heme/onc perspective. Reviewed plan with patient; discharge tab updated. Discussed with hospitalist.
Subjective/Objective
Subjective/Objective
Received 1u pRBC last night, hgb stable. Reports symptoms are largely unchanged after transfusion, but difficult for her to assess while in bed. No new complaints other than poor sleep in hospital. Still attributes symptoms to afib, but we did
discuss iron deficiency anemia contributing as well. Had 2 BM this AM-- formed, brown, easy to pass; no black/bloody stools.
General: Sitting up in bed. No acute distress. Appears comfortable. Conversant.
Lungs: Nonlabored breathing. Room air.
GI: Abdomen soft, nontender, nondistended; no rebound/rigidity/guarding.
Extremities: No edema. SCDs on and pumping.
Neuro: Awake, alert, oriented. Nonfocal.
Psych: Calm, appropriate affect.
Vital Signs:
Vital Signs
Temp Pulse Resp BP Pulse Ox
98.6 F 60 20 130/60 98
12/20/24 10:28 12/20/24 10:28 12/20/24 10:28 12/20/24 10:28 12/20/24 10:28
Lab Results:
Laboratory Data
WBC 5.8 10^3/uL (4.8-10.8) 12/20/24 06:24
Hgb 7.8 g/dL (12.0-16.0) L 12/20/24 06:24
Plt Count 402 10^3/uL (130-400) H 12/20/24 06:24
eGFR > 60.00 12/20/24 06:24
--- NOTE | 2024-12-20 11:18 | W.DCSUMMARY ---
Discharge Summary
Discharge Data
Date of Admission: 12/18/24
Date of Discharge: 12/20/24
-
Pending Results: Yes (SPEP, UPEP, urine total protein, Free kappa light chains)
Additional Pending Results:
Free kappa excretion, free lambda light chains, free lambda excretion 24 hours, Urine EVIN interpretation
Hospital Course
Discharging Physician : Dr. Sedrick Gaxiola and Dr. Shailesh Patel
Disposition : Home
Primary care physician : Dr. Caryn Schultz
Principal Discharge diagnosis : Iron deficiency anemia with shortness of breath/fatigue, hypercalcemia, paroxysmal atrial fibrillation, UTI
Chronic Discharge diagnosis : Essential hypertension, hyperlipidemia
Hospital Course : 79-year-old female with past medical history of atrial fibrillation, pretension, hyperlipidemia, GERD, hiatal hernia, IBS, osteoarthritis presented to ED at request of her outpatient doctor for abnormal labs, she cannot remember
which labs were abnormal. For the past several months she been feeling fatigued and short of breath with exertion along with lightheadedness.
Problem 1: Iron deficiency anemia with shortness of breath/fatigue---Hgb was 8.4 on admission, then next day dropped to 7.1 , was then transfused with 1 unit of PRBC. Hgb on discharge is 7.8. on labs Iron is low, TIBC is elevated, and ferritin is
low. Patient was then started on IV iron which was transitioned to oral Ferrous gluconate. Patients vitals are stable and she is afebrile on discharge with no clinical signs of active bleeding. Heme occult test is pending. Hematology was
consulted, see outpatient hem/onc. Repeat CBC in 1 week with PCP.
Problem #2: Hypercalcemia due to unspecified cause--- on admission calcium was 12.9 and then 9.9 on discharge. Patients home Hydrochlorothiazide was stopped an she was started on IV fluids which were later discontinued after calcium normalized ,
nephrology was consulted.Patients PTH was low normal at 3.4. No lethargy, weakness, confusion, constipation. Nephrology tests still pending and will be sent out.
Problem #3: Paroxysmal atrial fibrillation---EKG shows Afib on 12/19/24 with irregular heart rate in the 140's -170's. She has a previous history of Atrial fibrillation for which she was taking Metoprolol and Eliquis. On discharge today her heart
rate is 66 and well controlled. No chest pain, palpitations, syncope, dizziness on discharge. She was continued on her home dose of metoprolol. Her Eliquis was held initially due to low hgb level, but then restarted today morning and is to be
continued on discharge.
Problem #4: Essential Hypertension---Blood pressure is stable on discharge. Continue on Losartan and metoprolol on discharge.
Problem #5: Hyperlipemia-- continue on atorvastatin outpatient
Problem #6: UTI---patient received 1 dose of Bactrim bid. She had a UTI on previous admission for which she had forgotten to take last dose of Bactrim on admission.
Important imaging findings :
Lumbar spine 12/18/24:
IMPRESSION:
There is no evidence of acute compression fracture.
Multilevel moderate degenerative changes of the lumbar spine extending from L3-S1.
Thoracic spine 12/18/24:
IMPRESSION:
Multilevel mild degenerative changes with slightly exaggerated thoracic kyphosis.
Procedure findings :
Discharge Plan
-
Patient Disposition: Home (Routine Discharge)
Discharge Diagnosis/Procedures: Iron deficiency anemia, hypercalcemia, UTI, paroxysmal atrial fibrillation, essential hypertension, hyperlipidemia
Condition: Good
Diet: Low Cholesterol
Activity: As tolerated
Driving Restrictions: Not until seen by your Dr
Bathing Restrictions: None
Blood Work: CBC with PCP in 1 week
CMP with PCP in 1 week
Referrals:
Caryn Schultz CRNP [Family Provider] - in less than 1 week
Osvaldo Varela MD [Active] - in four to six weeks (Call [facility] office to schedule appointment for your iron deficiency anemia and to review pending labs from the hospital.)
Additional Discharge Medication Instructions: Take ferrous sulfate 325 mg twice a day
Hydrochlorothiazide was stopped due to contributing to your hypercalcemia
Prescriptions:
New
ferrous sulfate 325 mg (65 mg iron) tablet,delayed release (DR/EC)
325 mg PO BID Qty: 60 0RF
Continued
losartan 50 mg Tablet
50 mg PO QPM
atorvastatin [Lipitor] 10 mg Tablet
5 mg PO MOWEFR
metoprolol succinate [Toprol XL] 50 mg Tablet Extended Release 24 Hr
50 mg PO QPM
dicyclomine 10 mg Capsule
10 mg PO TIDPRN PRN (Reason: spasms)
cholecalciferol (vitamin D3) [Vitamin D3] 25 mcg (1,000 unit) Tablet
25 mcg PO DAILY
Refresh Optive 0.5-0.9 % Drops
1 drp BOTH EYES BID
omeprazole 20 mg Tablet,Delayed Release (Dr/Ec)
20 mg PO DAILYPRN PRN (Reason: gerd)
cranberry 450 mg Tablet
450 mg PO BID
Eliquis 5 mg Tablet
5 mg PO BID
Repatha SureClick 140 mg/mL Pen Injector
140 mg SC Q2W
Discontinued
hydrochlorothiazide 50 mg Tablet
50 mg PO DAILY
sulfamethoxazole-trimethoprim [Bactrim DS] 800-160 mg Tablet
1 tab PO BID
Rx Instructions:
patient only had 2 tablet left for today 12/18/24
tramadol 50 mg Tablet
50 mg PO TIDPRN PRN (Reason: moderate pain)
acetaminophen [Tylenol Extra Strength] 500 mg Tablet
1,000 mg PO BIDPRN PRN (Reason: mild pain)
Discharge Orders:
Discharge Patient (As Directed); Ordered 12/20/24
Ordered By: Sedrick Gaxiola
Discharge Date and Time
Print Language: BELARUSIAN
[2024-12-20] MEDS: ELIQUIS 5 MG PO (11:28)
--- NOTE | 2024-12-20 13:04 | CM ---
Patient stable for d/c today per hospitalist.
Met w/ patient bedside, agreeable to d/c.
Son will transport
IMM verbally reviewed, copy given to patient, copy on chart
Plan: Home, no needs
[2024-12-22 03:13] LABS: Alpha 1 Globulin 0.34 g/dL (0.19-0.46); Alpha 2 Globulin 0.83 g/dL (0.48-1.05); Free Kappa Light Chains,Quant 34.84 mg/L (3.30-19.40); Free Lambda Light Chains,Quant 21.67 mg/L (5.71-26.30); IgA 360 mg/dL (68-408); IgG 967 mg/dL (768-1632); IgM 94 mg/dL (35-263); Immunofixation Electrophoresis IFE Done; Kappa/Lambda Fr Light Ratio 1.61 (0.26-1.65); Total Protein-Electrophoresis 6.6 g/dL (6.3-8.2)
== END 2024-12-20 13:01 | disposition home or self-care (01) | DRG 812 ==
LOC: 4 WEST ACU 20:54
PROVIDERS: Emergency Medicine; Nurse Practitioner Gerontology; Registered Nurse; ADMITTING PHYSICIAN Internal Medicine; ATTENDING PHYSICIAN Internal Medicine; EMERGENCY PHYSICIAN Student in an Organized Health Care Education/Training Program; FAMILY PHYSICIAN Nurse Practitioner Family; OTHER PHYSICIAN Internal Medicine Hematology & Oncology
PROC: 30233N1 Transfusion of Nonautologous Red Blood Cells into Peripheral Vein, Percutaneous Approach (ICD-10-PCS; 2024-12-19)
DX: D50.9 Iron deficiency anemia, unspecified (principal); N39.0 Urinary tract infection, site not specified; E83.52 Hypercalcemia; I10 Essential (primary) hypertension; K21.9 Gastro-esophageal reflux disease without esophagitis; D75.839 Thrombocytosis, unspecified; E78.00 Pure hypercholesterolemia, unspecified; I48.0 Paroxysmal atrial fibrillation; R63.1 Polydipsia; M85.80 Other specified disorders of bone density and structure, unspecified site; M47.816 Spondylosis without myelopathy or radiculopathy, lumbar region; M40.204 Unspecified kyphosis, thoracic region; Z88.0 Allergy status to penicillin
CPT/HCPCS: 71275; 72072; 72100; 80048; 80053; 81003; 81015; 82607; 82728; 82746; 82784; 83521; 83540; 83550; 83880; 83970; 84155; 84165; 84443; 85014; 85018; 85025; 85027; 86334; 86850; 86900; 86901; 86920; 87077; 87086; 93005; 96360; 99285; J2916; P9016; Q9967